=== PATIENT | male | born 1990 | race Caucasian/White ===

== ENCOUNTER → 2017-01-12 | Outpatient (REF) ==
[~2017-01-12] MED LIST: AMOXICILLIN 8751 TAB PO; NO HOME MEDICATIONS
== END ==
LOC: WSOH 14:57
DX: Z01.89 Encounter for other specified special examinations (principal)

== ENCOUNTER → 2017-01-14 | Outpatient (REF) | LOC: WSOH 14:27 | DX: Z01.89 Encounter for other specified special examinations (principal) ==

== ENCOUNTER → 2017-01-17 | Outpatient (REF) | LOC: WSOH 12:51 | DX: Z01.89 Encounter for other specified special examinations (principal) ==

== ENCOUNTER 2018-01-22 17:09 | Emergency (ER) | payer SELFPAY ==
[~2018-01-22] VITALS: Ht 177.8 cm; Wt 68.2 kg
[2018-01-22 17:34] VITALS: BP 133/71; PULSE 67; TEMP 98.1
[2018-01-22 17:42] LABS: COLLECTION METHOD CLEAN CATCH
[2018-01-22 17:48] LABS: PH 7 (5-8); SQUAMOUS EPITHELIAL 0-2 /hpf; URINE APPEARANCE Clear; URINE BACTERIA None Seen /hpf; URINE BILIRUBIN Negative (NEGATIVE); URINE BLOOD Negative (NEGATIVE); URINE COLOR Straw; URINE GLUCOSE Negative (NEGATIVE); URINE KETONE Negative (NEGATIVE); URINE LEUKOCYTE ESTERASE Negative (NEGATIVE); URINE NITRATE Negative (NEGATIVE); URINE PROTEIN(semi-quant) Negative (NEGATIVE); URINE RBC 0-2 /hpf; URINE UROBILINOGEN Negative (NEGATIVE)
== END 2018-01-22 19:47 | disposition home or self-care (01) ==
LOC: COL.ER 17:09
PROVIDERS: Nurse Practitioner
DX: N50.811 Right testicular pain (principal); Z87.891 Personal history of nicotine dependence; F12.90 Cannabis use, unspecified, uncomplicated

== ENCOUNTER 2020-05-03 05:42 | Emergency (ER) | payer SELFPAY ==
[~2020-05-03] VITALS: Ht 177.8 cm; Wt 68.6 kg
[2020-05-03 05:45] VITALS: BP 138/89; TEMP 97.7
[2020-05-03 07:55] VITALS: PULSE 78
== END 2020-05-03 07:55 | disposition home or self-care (01) ==
LOC: COL.ER 05:42
DX: S69.92XA Unspecified injury of left wrist, hand and finger(s), initial encounter (principal); F17.210 Nicotine dependence, cigarettes, uncomplicated; V00.131A Fall from skateboard, initial encounter; Y93.51 Activity, roller skating (inline) and skateboarding; Y99.9 Unspecified external cause status

== ENCOUNTER 2020-06-02 07:23 | Emergency (ER) | payer SELFPAY ==
[~2020-06-02] VITALS: Ht 177.8 cm; Wt 72.7 kg
[2020-06-02 07:29] VITALS: BP 135/70; TEMP 97
[2020-06-02] MEDS ORDERED: BACTRIM DS 8001 TAB PO (08:38)
[2020-06-02] MEDS ORDERED: CEPHALEXIN500 M1 PO (08:38)
[2020-06-02 09:05] VITALS: PULSE 81
== END 2020-06-02 09:05 | disposition home or self-care (01) ==
LOC: COL.ER 07:23
DX: L02.511 Cutaneous abscess of right hand (principal); F17.210 Nicotine dependence, cigarettes, uncomplicated